=== PATIENT | female | born 1960 | race Caucasian/White ===

== ENCOUNTER 2019-03-14 16:24 | Inpatient (IN) | payer MEDICARE, OTHER ==
[2019-03-14 16:30] VITALS: BMI 33.9
--- NOTE | 2019-03-14 16:38 | PDOC ---
Rapid Medical Evaluation Chief Complaint: Shortness of Breath Time Seen by Provider: 03/14/19 16:34 Medical Evaluation: Allergies Allergy/AdvReac Type Severity Reaction Status Date / Time No Known Allergies Allergy Verified 03/14/19 16:27 Vital Signs Temp Pulse Resp BP Pulse Ox 98.5 F 101 H 16 146/92 96 03/14/19 16:27 03/14/19 16:27 03/14/19 16:27 03/14/19 16:27 03/14/19 16:27 03/14/19 16:35 Pt c/o: sob, dizzy , chest pain, weakness x 1 week, hx of anemia, worse as the day goes on, on no meds for anemia Pt on brief exam: tachy at 101, color pink, ekg nsr 83 Pt ordered for: labs,ekg, urine Pt to proceed to the ED 03/14/19 16:37 Discharge Disposition - Diagnosis Dizziness - Referrals - Patient Instructions - Post Discharge Activity
[2019-03-14 17:57] LABS: URINE APPEARANCE CLEAR; URINE BILIRUBIN NEGATIVE (NEGATIVE); URINE COLOR YELLOW; URINE GLUCOSE (UA) NEGATIVE (NEGATIVE); URINE KETONE NEGATIVE (NEGATIVE); URINE LEUK ESTERASE NEGATIVE (NEGATIVE); URINE NITRITE NEGATIVE (NEGATIVE); URINE PROTEIN NEGATIVE (NEGATIVE); URINE UROBILINOGEN 0.2 mg/dL (0.2-1.0)
[2019-03-14 18:00] LABS: BASO % 0.6 % (0-2.0); EOS % 0.7 % (0-4.5); HEMATOCRIT 39.5 % (32.4-45.2); HEMOGLOBIN 13.3 GM/dL (10.7-15.3); LYMPH % 24.4 % (8-40); MCH 29.3 pg (25.7-33.7); MCHC 33.7 g/dl (32.0-36.0); MEAN PLT VOLUME 9.2 fl (7.5-11.1); MONO % 6.6 % (3.8-10.2); NEUT % 67.7 % (42.8-82.8); PLATELET COUNT 282 K/MM3 (134-434); RBC 4.54 M/mm3 (3.60-5.2); RDW 12.8 % (11.6-15.6)
[2019-03-14 18:05] LABS: ALBUMIN 3.8 g/dl (3.4-5.0); BILIRUBIN,TOTAL 0.4 mg/dL (0.2-1); BLOOD UREA NITROGEN 14.6 mg/dL (7-18); CALCIUM 9.1 mg/dL (8.5-10.1); CREATININE 0.7 mg/dL (0.55-1.3); MAGNESIUM 2.2 mg/dL (1.8-2.4); POTASSIUM 4.3 mmol/L (3.5-5.1); TOT PROT 7.6 g/dl (6.4-8.2)
[2019-03-14] MEDS ORDERED: ASPIRIN 81 MG CHEWABLE TABLETS PO ONE (19:08)
--- NOTE | 2019-03-14 19:09 | PDOC ---
History of Present Illness - General Chief Complaint: Shortness of Breath Stated Complaint: WEAK/SHORTNESS OF BREATH Time Seen by Provider: 03/14/19 16:34 - History of Present Illness Initial Comments: The pt is a 59F w/ a history of HTN and DM who presents for evaluation of 1 week of increased weakness, decreased exercise tolerance, dyspnea on exertion, and chest pain with exertion. The pain is left-sided, non-radiating, achy/heavy , exertional, and alleviated by rest. She reports having similar symptoms approximately 1 year ago with a subsequent normal stress test and cath. She denies fevers/chills, vision changes, DELGADO, abdominal pain, N/V/C/D, dysuria, hematuria, or changes in sensation PMH: HTN, DM (both diet controlled) PSH: C/S x2 Meds: Denies SH: Social EtOH, Denies tobacco or illicit drug use PCP: N/A, recently moved here from [place] 03/14/19 19:24 Past History - Past Medical History Allergies/Adverse Reactions: Allergies Allergy/AdvReac Type Severity Reaction Status Date / Time No Known Allergies Allergy Verified 03/14/19 16:27 Home Medications: Ambulatory Orders NK [No Known Home Medication] 03/14/19 COPD: No - Immunization History Immunization Up to Date: Yes - Suicide/Smoking/Psychosocial Hx Smoking History: Never smoked Have you smoked in the past 12 months: No Information on smoking cessation initiated: No Hx Alcohol Use: No Drug/Substance Use Hx: No Substance Use Type: None Review of Systems - Review of Systems Able to Perform ROS?: Yes Comments:: GENERAL/CONSTITUTIONAL: No fever or chills HEAD, EYES, EARS, NOSE AND THROAT: No change in vision. No change in hearing. No sore throat CARDIOVASCULAR: +dyspnea on exertion, +exertional chest pain RESPIRATORY: Denies cough GASTROINTESTINAL: No nausea, vomiting, diarrhea or constipation GENITOURINARY: No dysuria, frequency, or change in urination MUSCULOSKELETAL: No joint or muscle swelling or pain. No neck or back pain SKIN: No rash NEUROLOGIC: No headache, vertigo, loss of consciousness, or change in strength/ sensation ENDOCRINE: No increased thirst. No abnormal weight change HEMATOLOGIC/LYMPHATIC: No anemia, easy bleeding, or history of blood clots ALLERGIC/IMMUNOLOGIC: No hives or skin allergy 03/14/19 19:07 Is the patient limited Fijian proficient: No *Physical Exam - Vital Signs Last Vital Signs Temp Pulse Resp BP Pulse Ox 98.5 F 101 H 16 146/92 96 03/14/19 16:27 03/14/19 16:27 03/14/19 16:27 03/14/19 16:27 03/14/19 18:36 - Physical Exam Comments: GENERAL: Awake, alert, and oriented to person/place/time, in no acute distress HEAD: No signs of trauma, normocephalic, atraumatic EYES: PERRLA, EOMI, sclera anicteric, conjunctiva clear ENT: Hearing grossly normal, nares patent, oropharynx clear without exudates. Moist mucosa LUNGS: No distress, speaks in full sentences, clear to auscultation bilaterally HEART: Regular rate and rhythm, normal S1 and S2, no murmurs appreciated, peripheral pulses normal and equal bilaterally ABDOMEN: Soft, protuberant, NTTP, normoactive bowel sounds. No guarding, no rebound EXTREMITIES: Normal inspection, Normal range of motion, no edema. No clubbing or cyanosis NEUROLOGICAL: Cranial nerves II through XII grossly intact. Normal speech, no focal sensorimotor deficits SKIN: Warm, Dry 03/14/19 19:08 ED Treatment Course - LABORATORY CBC & Chemistry Diagram: 03/14/19 17:17 03/14/19 17:17 - ADDITIONAL ORDERS Additional order review: Laboratory Results 03/14/19 03/14/19 17:17 17:17 Sodium 138 Potassium 4.3 Chloride 101 Carbon Dioxide 28 Anion Gap 9 BUN 14.6 Creatinine 0.7 Est GFR (CKD-EPI)AfAm 108.38 Est GFR (CKD-EPI)NonAf 93.51 Random Glucose 159 H Calcium 9.1 Magnesium 2.2 Total Bilirubin 0.4 AST 11 L ALT 23 Alkaline Phosphatase 102 Creatine Kinase 62 Troponin I 0.08 H Total Protein 7.6 Albumin 3.8 Urine Color Yellow Urine Appearance Clear Urine pH 6.0 Ur Specific [place] 1.017 Urine Protein Negative Urine Glucose (UA) Negative Urine Ketones Negative Urine Blood Negative Urine Nitrite Negative Urine Bilirubin Negative Urine Urobilinogen 0.2 Ur Leukocyte Esterase Negative 03/14/19 17:17 RBC 4.54 MCV 87.0 MCHC 33.7 RDW 12.8 MPV 9.2 Neutrophils % 67.7 Lymphocytes % 24.4 Monocytes % 6.6 Eosinophils % 0.7 Basophils % 0.6 Medical Decision Making - Medical Decision Making The pt is a 59F w/ a history of HTN and DM who presents for evaluation of 1 week of typical chest pain. Pt denies SOB/chest pain currently while laying in bed Ddx: ACS, consider PNA, less likely TAA, AD ED Course Labs sent from triage ECG CXR No leukocytosis No anemia Lytes wnl No NICOLE LFTs wnl Initial trop I mildly elevated to 0.08 -ASA ordered ECG w/ NSR; HR 86; QTc 458, No evidence of LEIGH Pt pending CXR Plan for tele obs for ACS 03/14/19 19:30 Pt signed out to [facility] Admitting 03/14/19 19:48 *DC/Admit/Observation/Transfer Diagnosis at time of Disposition: ACS (acute coronary syndrome), Dyspnea on exertion - Discharge Dispostion Condition at time of disposition: Good Decision to Admit order: Yes - Referrals - Patient Instructions - Post Discharge Activity
--- NOTE | 2019-03-14 19:58 | PDOC ---
Documentation entered by Carrie Martinez SCRIBE, acting as scribe for Suman Garcia MD. Suman Garcia MD: This documentation has been prepared by the Michelle ling Xhesika, SCRIBE, under my direction and personally reviewed by me in its entirety. I confirm that the documentation accurately reflects all work, treatment, procedures, and medical decision making performed by me. Attending Attestation - Resident Resident Name: Filiberto Puri - ED Attending Attestation I have performed the following: I have examined & evaluated the patient, The case was reviewed & discussed with the resident, I agree w/resident's findings & plan, Exceptions are as noted - HPI HPI: 03/14/19 19:26 The patient is a 59 year old female with a significant PMH of HTN and diabetes who presents to the emergency department with 1 week of intermittent SOB associated with generalized weakness, dizziness, and typical chest pain. Patient states she feels SOB and needs to rest when she walks more than 1 block. Patient notes she does not feel SOB currently. Patient notes she recently moved from [place] and does not have a PCP or Weapons Designer. The patient denies headache, fever, chills, cough, nausea, vomiting, diarrhea and constipation. Denies dysuria, frequency, urgency and hematuria. Allergies: NKDA - Physicial Exam PE: 03/14/19 20:01 Agree with exam as documented by resident - Medical Decision Making 03/14/19 20:01 Progressively worsening ET over 1 week with exertional typical chest pain minimally elevated troponin EKG non-ischemic CXR no acute pathology Admit to tele for ACS eval
--- NOTE | 2019-03-14 20:35 | HP ---
CHIEF COMPLAINT: sob, chest pain PCP: Alon Arvizu HISTORY OF PRESENT ILLNESS: 59 y/o F, pmh of htn, dm type 2, and anemia, presents to the ED c/o of sob and left sided, localized, intermittent, dull chest pain, rated 4/10, of 1 week duration that has not improved or worsened since onset. Pt says that the pain is localized to the superior border of her left chest, tender to touch, reproducible and not associated with exertion. Pt reports her sob is not associated to exertion but rather is spontaneous occurring. Pt also reports some dizziness and runny eyes with her symptoms. Pt recently moved to [place] from [place], where she had done a stress test and cardiac cath a year ago for similar symptoms, for which the results were negative,as per her mechanical systems designer Dr. Alon Arvizu. Pt reports her daughter lives with her and recently recovered from shingles. Currently, pt has improved and has no c/o. Denies f/c/n/v/d, sore throat, abdominal pain, numbness, tingling, diarrhea, melena, hematochezia. ER course was notable for: (1) EKG- no acute changes (2) Aspirin given in ED (3) CXR- no acute pathology Recent Travel: moved from [place] PAST MEDICAL HISTORY: htn, dm type 2, and anemia PAST SURGICAL HISTORY: cardiac cath and stress test done last year Social History: Smoking: denies Alcohol: denies Drugs: denies Family History: Father- brain cancer Allergies No Known Allergies Allergy (Verified 03/14/19 16:27)---- HOME MEDICATIONS: Home Medications Medication Instructions Recorded NK [No Known Home Medication] 03/14/19 REVIEW OF SYSTEMS CONSTITUTIONAL: Absent: fever, chills, diaphoresis, generalized weakness, malaise, loss of appetite, weight change HEENT: Absent: eye pain, visual changes CARDIOVASCULAR: Absent: chest pain, syncope, palpitations, lightheadedness RESPIRATORY: Admits: shortness of breath, cough, Absent: dyspnea with exertion, wheezing, hemoptysis GASTROINTESTINAL: Absent: abdominal pain, abdominal distension, nausea, vomiting, diarrhea, constipation, melena, hematochezia GENITOURINARY: Absent: dysuria, frequency, hematuria, flank pain, genital pain MUSCULOSKELETAL: Absent: myalgia, arthralgia, back pain, SKIN: Absent: rash, itching, pallor HEMATOLOGIC/IMMUNOLOGIC: Absent: lymphadenopathy, frequent infections ENDOCRINE: Absent: unexplained weight gain/weight loss, NEUROLOGIC: Absent: headache, dizziness, unsteady gait, seizure, mental status changes, bladder or bowel incontinence PSYCHIATRIC: Absent: anxiety, PHYSICAL EXAMINATION Vital Signs - 24 hr Last Vital Signs Temp Pulse Resp BP Pulse Ox 98.5 F 101 H 16 146/92 96 03/14/19 16:27 03/14/19 16:27 03/14/19 16:27 03/14/19 16:27 03/14/19 18:36 GENERAL: Awake, alert, and fully oriented, in no acute distress. EYES: Pupils equal, round and reactive to light, extraocular movements intact. Fundoscopic exam wnl EARS, NOSE, THROAT: oropharynx clear without exudates. Moist mucous membranes. NECK: Supple without lymphadenopathy, JVD, or masses. LUNGS: Breath sounds equal, clear to auscultation bilaterally. No wheezes, and no crackles. HEART: Regular rate and rhythm, normal S1 and S2 without murmur, rub or gallop. ABDOMEN: Soft, nontender, not distended, normoactive bowel sounds, no guarding, no rebound, no masses. No hepatomegaly or splenomegaly. MUSCULOSKELETAL: No CVA tenderness. UPPER EXTREMITIES: 2+ pulses, warm, well-perfused. No cyanosis. No peripheral edema. LOWER EXTREMITIES: 2+ pulses, warm, well-perfused. No peripheral edema. NEUROLOGICAL: Normal speech. PSYCHIATRIC: Cooperative. Good eye contact. Appropriate mood and affect. Laboratory Results - last 24 hr ASSESSMENT/PLAN: 59 y/o F, pmh of htn, dm type 2, and anemia, presents to the ED c/o of sob and left sided, localized chest pain of 1 week duration w/ EKG and CXR showing no abnormality and mildly elevated trop will need to r/o ACS #Chest pain + SOB likely 2/2 Chostochondritis vs intercostal muscle strain r/o ACS Pt on tele obs trend trops- 1st trop .08- elevated Lipid panel- f/u TSH ordered Tylenol for pain ECHO in the am Cardiology-Dr. Benz consulted F/u results for stress test and cardiac cath [facility] #Hypertensive urgency BP monitoring- now at 133/69 Lisinopril 10 PO daily Check BP and if needed adjust or switch medication #DM BGM ISS #DVT ppx Heparin sq FEN: Sodium/diabetic diet Dispo: f/u w/ ECHO in am, speak to cardiology, trend Trops Encouraged pt to establish care w/ PCP locally if possible ATTENDING PHYSICIAN STATEMENT I saw and evaluated the patient. I reviewed the resident's note and discussed the case with the resident. I agree with the resident's findings and plan as documented. SUBJECTIVE: OBJECTIVE: ASSESSMENT AND PLAN:
[2019-03-14] MEDS ORDERED: ASPIRIN COATED 81 MG TABLET.EC ONE (20:38)
--- NOTE | 2019-03-14 21:38 | PN ---
Teaching Attending Note ATTENDING PHYSICIAN STATEMENT I saw and evaluated the patient. I reviewed the resident's note and discussed the case with the resident. I agree with the resident's findings and plan as documented. Seen and examined; please refer to resident note for further historical information. Briefly, this is a 59 y/o female presenting to the ER with a CC of chest pain. Reported negative cath 1 year ago; outside facility and we will work to start obtaining records. Somewhat atypical and similar in nature to prior episodes. VS, labs, imaging reviewed NAD, AAO, resting in bed RRR s1/2 no mgr NC AT EOMI PERRLA NT ND +BS CN2-12 wnl, no fnd Normal mood, appropriate behavior EKG reviewed CXR reviewed Telemetry ordered ASSESSMENT AND PLAN: Patint presents with chest pain; reported negative cath ~yr ago with report pending. Afebrile and hemodynamcially stable with borderline troponin; valencia shave risk factors so will observe overngiht to r/o ACS # Chest Pain (ACS vs. HTN Emergency vs. other) # Obesity (BMI 33) # Uncontrolled HTN vs. Emergency # Troponemia Patient will be admitted to the telemetry; consider CV consultation in AM. Will work to control BP (was >180 in the ER). Etiology of CP is likely ACS vs. HTN emergency vs. MuSk/Other though with +troponin in light of no renal failure would be suspecting some strain. Giving 81mg PO ASA QD, checking labs to assess risk factors. Rechecking pressure STAT and will need to be DC on BP meds. Full code
[2019-03-14] MEDS: INSULIN SLIDING SCALE (NOVOLOG) 1 VIAL SQ SCH (21:45)
[2019-03-14] MEDS ORDERED: ACETAMINOPHEN 325 MG TABLET (FP) ONE (22:51)
[2019-03-14] MEDS: ACETAMINOPHEN 325 MG TABLET (FP) PO PRN (22:54)
[2019-03-15] MEDS ORDERED: LISINOPRIL 10 MG TABLET (FP) PO SCH ×3 (03:55→10:00)
[2019-03-15] MEDS ORDERED: HEPARIN NA (PORCINE) 5,000 UNITS/ML 1ML VIAL ONE (06:28)
[2019-03-15] MEDS: HEPARIN NA (PORCINE) 5,000 UNITS/ML 1ML VIAL SQ SCH ×2 (06:48→14:07)
[2019-03-15] MEDS: INSULIN SLIDING SCALE (NOVOLOG) 1 VIAL SQ SCH ×3 (06:48→17:22)
[2019-03-15 08:00] LABS: BASO % 0.8 % (0-2.0); EOS % 0.8 % (0-4.5); HEMATOCRIT 38.6 % (32.4-45.2); LYMPH % 28.9 % (8-40); MCH 29.4 pg (25.7-33.7); MCHC 33.8 g/dl (32.0-36.0); MEAN CELL VOLUME 86.8 fl (80-96); MEAN PLT VOLUME 8.8 fl (7.5-11.1); MONO % 7.5 % (3.8-10.2); PLATELET COUNT 263 K/MM3 (134-434); RBC 4.44 M/mm3 (3.60-5.2); RDW 12.9 % (11.6-15.6); WHITE BLOOD COUNT 7.6 K/mm3 (4.0-10.0)
[2019-03-15 08:26] LABS: CHOLESTEROL 265 mg/dL (50-200); HDL CHOLESTEROL 65 mg/dL (40-60); TRIGLYCERIDES 92 mg/dL (0-150)
[2019-03-15 08:42] LABS: ALBUMIN 3.6 g/dl (3.4-5.0); BILIRUBIN,TOTAL 0.6 mg/dL (0.2-1); BLOOD UREA NITROGEN 11.4 mg/dL (7-18); CALCIUM 9.2 mg/dL (8.5-10.1); CREATININE 0.6 mg/dL (0.55-1.3); TOT PROT 7.3 g/dl (6.4-8.2)
[2019-03-15] MEDS ORDERED: ASPIRIN 81 MG CHEWABLE TABLETS PO SCH (10:00)
[2019-03-15] MEDS ORDERED: LISINOPRIL 5 MG TABLET (FP) ONE (11:11)
--- NOTE | 2019-03-15 11:46 | EKG ---
Test Reason : Blood Pressure : / mmHG Vent. Rate : 083 BPM Atrial Rate : 083 BPM P-R Int : 120 ms QRS Dur : 082 ms QT Int : 390 ms P-R-T Axes : 014 029 003 degrees QTc Int : 458 ms NORMAL SINUS RHYTHM NORMAL ECG NO PREVIOUS ECGS AVAILABLE Confirmed by WALT WHITE MD ([id number]) on 03/15/2019 11:45:50 AM Referred By: Confirmed By:WALT WHITE MD
--- NOTE | 2019-03-15 12:46 | CON.CARD ---
Cardiology Consult (text) - Consultation Consultation Note: cc: cp, weakness, sob hpi: 59 f hx htn, dm, hld, here with cp, weakness, sob. Symptoms have been intermittent for over a year, worse past few weeks. No exertional sxs. Cp is sharp, upper left chest/shoulder, worse with palpation. Currently pt feeling well. No hx hrt dz. Pt reports normal cath for these sxs last year. pmh: per hpi psh: social: no tob fam: no premature cad,scd ros: per hpi; all others nl meds: Home Medications Medication Instructions Recorded NK [No Known Home Medication] 03/14/19 pe: Vital Signs Period Temp Pulse Resp BP Sys/Dewitt Pulse Ox Last 24 Hr 97.7 F-98.5 F 66-101 16-20 133-182/69-92 96-98 nad no jvd rrr s1s2 no mrg cta bl nl eff aao3 no le e/c/c abd nt nd pos bs no jaundice diaphoresis pos dp pt no carotid bruits +chest wall tenderness Laboratory Last Values WBC 7.6 K/mm3 (4.0-10.0) 03/15/19 07:37 RBC 4.44 M/mm3 (3.60-5.2) 03/15/19 07:37 Hgb 13.0 GM/dL (10.7-15.3) 03/15/19 07:37 Hct 38.6 % (32.4-45.2) 03/15/19 07:37 MCV 86.8 fl (80-96) 03/15/19 07:37 MCH 29.4 pg (25.7-33.7) 03/15/19 07:37 MCHC 33.8 g/dl (32.0-36.0) 03/15/19 07:37 RDW 12.9 % (11.6-15.6) 03/15/19 07:37 Plt Count 263 K/MM3 (134-434) 03/15/19 07:37 MPV 8.8 fl (7.5-11.1) 03/15/19 07:37 Absolute Neuts (auto) 4.7 K/mm3 (1.5-8.0) 03/15/19 07:37 Neutrophils % 62.0 % (42.8-82.8) 03/15/19 07:37 Lymphocytes % 28.9 % (8-40) 03/15/19 07:37 Monocytes % 7.5 % (3.8-10.2) 03/15/19 07:37 Eosinophils % 0.8 % (0-4.5) 03/15/19 07:37 Basophils % 0.8 % (0-2.0) 03/15/19 07:37 Nucleated RBC % 0 % (0-0) 03/15/19 07:37 Sodium 140 mmol/L (136-145) 03/15/19 07:37 Potassium 4.0 mmol/L (3.5-5.1) 03/15/19 07:37 Chloride 104 mmol/L (98-107) 03/15/19 07:37 Carbon Dioxide 29 mmol/L (21-32) 03/15/19 07:37 Anion Gap 7 MMOL/L (8-16) L 03/15/19 07:37 BUN 11.4 mg/dL (7-18) 03/15/19 07:37 Creatinine 0.6 mg/dL (0.55-1.3) 03/15/19 07:37 Est GFR (CKD-EPI)AfAm 114.02 03/15/19 07:37 Est GFR (CKD-EPI)NonAf 98.38 03/15/19 07:37 POC Glucometer 129 UNITS (80-120) 03/15/19 11:29 Random Glucose 140 mg/dL (74-106) H 03/15/19 07:37 Hemoglobin A1c % 7.2 % (4.2-6.3) H 03/15/19 07:37 Calcium 9.2 mg/dL (8.5-10.1) 03/15/19 07:37 Magnesium 2.2 mg/dL (1.8-2.4) 03/14/19 17:17 Total Bilirubin 0.6 mg/dL (0.2-1) 03/15/19 07:37 AST 18 U/L (15-37) 03/15/19 07:37 ALT 25 U/L (13-61) 03/15/19 07:37 Alkaline Phosphatase 89 U/L (45-117) 03/15/19 07:37 Creatine Kinase 62 U/L (26-192) 08/22/19 17:17 Troponin I 0.07 ng/ml (0.00-0.05) H 03/15/19 07:37 Total Protein 7.3 g/dl (6.4-8.2) 03/15/19 07:37 Albumin 3.6 g/dl (3.4-5.0) 03/15/19 07:37 Triglycerides 92 mg/dL (0-150) 03/15/19 07:37 Cholesterol 265 mg/dL (50-200) H 03/15/19 07:37 Total LDL Cholesterol 177 mg/dL (5-100) H 03/15/19 07:37 HDL Cholesterol 65 mg/dL (40-60) H 03/15/19 07:37 TSH 2.22 uIU/ml (0.358-3.74) 03/15/19 07:37 Urine Color Yellow 03/14/19 17:17 Urine Appearance Clear 03/14/19 17:17 Urine pH 6.0 (5.0-8.0) 03/14/19 17:17 Ur Specific [place] 1.017 (1.010-1.035) 03/14/19 17:17 Urine Protein Negative (NEGATIVE) 03/14/19 17:17 Urine Glucose (UA) Negative (NEGATIVE) 03/14/19 17:17 Urine Ketones Negative (NEGATIVE) 03/14/19 17:17 Urine Blood Negative (NEGATIVE) 03/14/19 17:17 Urine Nitrite Negative (NEGATIVE) 03/14/19 17:17 Urine Bilirubin Negative (NEGATIVE) 03/14/19 17:17 Urine Urobilinogen 0.2 mg/dL (0.2-1.0) 03/14/19 17:17 Ur Leukocyte Esterase Negative (NEGATIVE) 03/14/19 17:17 Blood Type O POSITIVE 03/15/19 07:37 Antibody Screen Negative 03/14/19 17:17 cxr: clear lungs ecg: sr nl intervals no ischemic changes a/p: 59 f hx htn, dm, hld, here with cp, weakness, sob. cp, weakness, sob: -no signs acs, chf, arrhythmia -chest pain seems MSK (reproducible on palpation) -trops borderline range with flat trend and nl ck, not c/w acs -check echo -pt reports nl cath for these same symptoms last year in [place]. if echo here benign then no further cardiac testing needed at this time htn: -cont sly-i hld: -cont statin
--- NOTE | 2019-03-15 14:01 | ECHO ---
Name: JAC ELDRIDGE Exam:Adult Echocardiogram Study Date: 03/15/2019 09:02 AM Age: 59 yrs Reason For Study: Chest pain Height: 65 in Weight: 204 lb BSA: 2.0 m2 MMode/2D Measurements & Calculations IVSd: 1.0 cm Ao root diam: 2.6 cm LVIDd: 5.1 cm LA dimension: 3.4 cm LVIDs: 3.6 cm LVPWd: 0.96 cm EDV(Teich): 122.2 ml LVOT diam: 2.1 cm ESV(Teich): 53.9 ml Doppler Measurements & Calculations MV E max jim: 68.6 cm/sec Ao V2 max: 121.6 cm/sec MV A max jim: 80.9 cm/sec Ao max P.9 mmHg MV E/A: 0.85 Ao V2 mean: 103.0 cm/sec MV dec time: 0.17 sec Ao mean P.4 mmHg Ao V2 VTI: 30.8 cm DESIRAE(I,D): 1.6 cm2 DESIRAE(V,D): 1.8 cm2 LV V1 max P.7 mmHg MR max jim: 312.2 cm/sec LV V1 mean P.0 mmHg MR max P.0 mmHg LV V1 max: 65.8 cm/sec LV V1 mean: 47.8 cm/sec LV V1 VTI: 14.1 cm SV(LVOT): 47.8 ml TR max jim: 225.2 cm/sec TR max P.7 mmHg PA V2 max: 74.7 cm/sec PI end-d jim: 82.8 cm/sec PA max P.2 mmHg Med Peak E' Jim: 4.7 cm/sec Med E/e': 14.7 Lat Peak E' Jim: 4.0 cm/sec Lat E/e': 17.1 Procedure A complete two-dimensional transthoracic echocardiogram was performed (2D, M-mode, Doppler and color flow Doppler). Left Ventricle The left ventricular size, thickness and function are normal. The left ventricular ejection fraction is normal. Ejection Fraction = 60-65%. The left ventricular wall motion is normal. Right Ventricle The right ventricle is normal in size and function. Atria Normal left and right atrial size and function. Mitral Valve There is no mitral regurgitation noted. Tricuspid Valve There is mild tricuspid regurgitation. Right ventricular systolic pressure is normal. Aortic Valve No hemodynamically significant valvular aortic stenosis. No aortic regurgitation is present. Pulmonic Valve Trace pulmonic valvular regurgitation. Great Vessels The aortic root is normal size. Pericardium/Pleura There is no pericardial effusion. Interpretation Summary The left ventricular size, thickness and function are normal The right ventricle is normal in size and function. There is mild tricuspid regurgitation. Trace pulmonic valvular regurgitation. MD Frank Reed 03/15/2019 02:00 PM
--- NOTE | 2019-03-15 14:41 | PN ---
Teaching Attending Note Name of Resident: Sp Corona ATTENDING PHYSICIAN STATEMENT I saw and evaluated the patient. I reviewed the resident's note and discussed the case with the resident. I agree with the resident's findings and plan as documented. SUBJECTIVE: No fever or chills. No DELGADO , L upper cp under clavicle. No DELGADO . reports blurry vision, but is supposed to wear glasses. she reports no SOB but has SOB with exertion ( 1 block and 1 flight of stairs ) OBJECTIVE: NAD Cv : RRR, no JVD, no MRG Lungs: CTAB Ext : no edema or erythema. Abd: soft, NT, ND , Neg hepatojugular reflux. TTP over L upper chest under the medial part of the clavicle ASSESSMENT AND PLAN: 59 y/o lady with h/o Untreated HTn and DM , who presented with L sided CP and SOB, and was found to have HTN emergency 1- HTN emergency: Bp improved - start lisionpril 10 mg daily - need BMP in 1 week for cr and K 2- DM : will start metformin at dc - SSI here 3- Elevated trop: likely due to HTN . -EKG reviewed. - will try to obtain cath and stress test reprots - cp is musculoskeletal and reproducible. - further w/u as out pt 4- HLP: LDL above goal. - start lipitor 5- Chronic exertional SOB: further cardiac w/u as out pt , and also might need PFTs. dispo : Will dc home later today will refer to resident clinic. she was made aware of importance ot follow up and to comply with meds, and also the need fro BMP in 1 week
[2019-03-15 14:55] VITALS: BP 109/60
[2019-03-15] MEDS: ACETAMINOPHEN 325 MG TABLET (FP) PO PRN (15:43)
[2019-03-15 16:44] VITALS: PULSE 72; TEMP 97.6
--- NOTE | 2019-03-15 17:20 | DS ---
Physical Exam: SUBJECTIVE: Patient seen and examined by the bedside, AOx3. OBJECTIVE: Vital Signs Period Temp Pulse Resp BP Sys/Dewitt Pulse Ox Last 24 Hr 97.6 F-98.2 F 66-82 18-20 109-182/60-88 95-98 PHYSICAL EXAM GENERAL: The patient is awake, alert, and fully oriented, in no acute distress. HEAD: Normal with no signs of trauma. EYES: PERRL, extraocular movements intact, sclera anicteric, conjunctiva clear. ENT: Ears normal, nares patent, oropharynx clear without exudates, moist mucous membranes. NECK: Trachea midline, full range of motion, supple. LUNGS: Breath sounds equal, clear to auscultation bilaterally, no wheezes, no crackles, no accessory muscle use. HEART: Regular rate and rhythm, S1, S2 without murmur, rub or gallop. Tenderness to palpation under right clavicle ABDOMEN: Soft, nontender, nondistended, normoactive bowel sounds, no guarding, no rebound, no hepatosplenomegaly, no masses. EXTREMITIES: 2+ pulses, warm, well-perfused, no edema. NEUROLOGICAL: Cranial nerves II through XII grossly intact. Normal speech, gait not observed. PSYCH: Normal mood, normal affect. SKIN: Warm, dry, normal turgor, no rashes or lesions noted. LABS Laboratory Results - last 24 hr 03/14/19 03/14/19 03/14/19 17:17 17:17 17:17 WBC 10.0 RBC 4.54 Hgb 13.3 Hct 39.5 MCV 87.0 MCH 29.3 MCHC 33.7 RDW 12.8 Plt Count 282 MPV 9.2 Absolute Neuts (auto) 6.8 Neutrophils % 67.7 Lymphocytes % 24.4 Monocytes % 6.6 Eosinophils % 0.7 Basophils % 0.6 Nucleated RBC % 0 Sodium 138 Potassium 4.3 Chloride 101 Carbon Dioxide 28 Anion Gap 9 BUN 14.6 Creatinine 0.7 Est GFR (CKD-EPI)AfAm 108.38 Est GFR (CKD-EPI)NonAf 93.51 POC Glucometer Random Glucose 159 H Hemoglobin A1c % Calcium 9.1 Magnesium 2.2 Total Bilirubin 0.4 AST 11 L ALT 23 Alkaline Phosphatase 102 Creatine Kinase 62 Troponin I 0.08 H Total Protein 7.6 Albumin 3.8 Triglycerides Cholesterol Total LDL Cholesterol HDL Cholesterol TSH Urine Color Urine Appearance Urine pH Ur Specific [place] Urine Protein Urine Glucose (UA) Urine Ketones Urine Blood Urine Nitrite Urine Bilirubin Urine Urobilinogen Ur Leukocyte Esterase Blood Type O POSITIVE Antibody Screen Negative 03/14/19 03/14/19 03/14/19 17:17 21:36 22:48 WBC RBC Hgb Hct MCV MCH MCHC RDW Plt Count MPV Absolute Neuts (auto) Neutrophils % Lymphocytes % Monocytes % Eosinophils % Basophils % Nucleated RBC % Sodium Potassium Chloride Carbon Dioxide Anion Gap BUN Creatinine Est GFR (CKD-EPI)AfAm Est GFR (CKD-EPI)NonAf POC Glucometer 136 Random Glucose Hemoglobin A1c % Calcium Magnesium Total Bilirubin AST ALT Alkaline Phosphatase Creatine Kinase Troponin I Cancelled Total Protein Albumin Triglycerides Cholesterol Total LDL Cholesterol HDL Cholesterol TSH Urine Color Yellow Urine Appearance Clear Urine pH 6.0 Ur Specific [place] 1.017 Urine Protein Negative Urine Glucose (UA) Negative Urine Ketones Negative Urine Blood Negative Urine Nitrite Negative Urine Bilirubin Negative Urine Urobilinogen 0.2 Ur Leukocyte Esterase Negative Blood Type Antibody Screen 03/15/19 03/15/19 03/15/19 02:40 06:35 07:37 WBC RBC Hgb Hct MCV MCH MCHC RDW Plt Count MPV Absolute Neuts (auto) Neutrophils % Lymphocytes % Monocytes % Eosinophils % Basophils % Nucleated RBC % Sodium Potassium Chloride Carbon Dioxide Anion Gap BUN Creatinine Est GFR (CKD-EPI)AfAm Est GFR (CKD-EPI)NonAf POC Glucometer 134 Random Glucose Hemoglobin A1c % Calcium Magnesium Total Bilirubin AST ALT Alkaline Phosphatase Creatine Kinase Troponin I 0.08 H Total Protein Albumin Triglycerides Cholesterol Total LDL Cholesterol HDL Cholesterol TSH Urine Color Urine Appearance Urine pH Ur Specific [place] Urine Protein Urine Glucose (UA) Urine Ketones Urine Blood Urine Nitrite Urine Bilirubin Urine Urobilinogen Ur Leukocyte Esterase Blood Type O POSITIVE Antibody Screen 03/15/19 03/15/19 03/15/19 07:37 07:37 07:37 WBC 7.6 RBC 4.44 Hgb 13.0 Hct 38.6 MCV 86.8 MCH 29.4 MCHC 33.8 RDW 12.9 Plt Count 263 MPV 8.8 Absolute Neuts (auto) 4.7 Neutrophils % 62.0 Lymphocytes % 28.9 Monocytes % 7.5 Eosinophils % 0.8 Basophils % 0.8 Nucleated RBC % 0 Sodium 140 Potassium 4.0 Chloride 104 Carbon Dioxide 29 Anion Gap 7 L BUN 11.4 Creatinine 0.6 Est GFR (CKD-EPI)AfAm 114.02 Est GFR (CKD-EPI)NonAf 98.38 POC Glucometer Random Glucose 140 H Hemoglobin A1c % Calcium 9.2 Magnesium Total Bilirubin 0.6 AST 18 ALT 25 Alkaline Phosphatase 89 Creatine Kinase Troponin I Total Protein 7.3 Albumin 3.6 Triglycerides 92 Cholesterol 265 H Total LDL Cholesterol 177 H HDL Cholesterol 65 H TSH 2.22 Urine Color Urine Appearance Urine pH Ur Specific [place] Urine Protein Urine Glucose (UA) Urine Ketones Urine Blood Urine Nitrite Urine Bilirubin Urine Urobilinogen Ur Leukocyte Esterase Blood Type Antibody Screen 03/15/19 03/15/19 03/15/19 07:37 07:37 11:29 WBC RBC Hgb Hct MCV MCH MCHC RDW Plt Count MPV Absolute Neuts (auto) Neutrophils % Lymphocytes % Monocytes % Eosinophils % Basophils % Nucleated RBC % Sodium Potassium Chloride Carbon Dioxide Anion Gap BUN Creatinine Est GFR (CKD-EPI)AfAm Est GFR (CKD-EPI)NonAf POC Glucometer 129 Random Glucose Hemoglobin A1c % 7.2 H Calcium Magnesium Total Bilirubin AST ALT Alkaline Phosphatase Creatine Kinase Troponin I 0.07 H Total Protein Albumin Triglycerides Cholesterol Total LDL Cholesterol HDL Cholesterol TSH Urine Color Urine Appearance Urine pH Ur Specific [place] Urine Protein Urine Glucose (UA) Urine Ketones Urine Blood Urine Nitrite Urine Bilirubin Urine Urobilinogen Ur Leukocyte Esterase Blood Type Antibody Screen HOSPITAL COURSE: Date of Admission:03/14/19 59 year old female with PMH significant for htn, dm type 2, and anemia (not o any home meds) presented to the ER with complaints of SOB and constant left sided, reproducible chest pain under the right clavicle, rated 3/10, of 1 week duration.. She moved to [place] from [place] one month ago, where she had done a stress test and cardiac cath a year ago for similar symptoms, for which the results were negative,as per her surveillance investigator Dr. Alon Arvizu. Attempts were made to retrieve these tests but have been unsuccessful so far. Pt reports her daughter lives with her and recently recovered from shingles. No associated sore throat, abdominal pain, numbness, tingling, diarrhea, melena, hematochezia. Date of Discharge: 03/15/19 Trops were done x3 and remained at 0.08 and 0.07. EKG was negative. There was tenderness beneath her right clavicle, and ACS was ruled out. Echo showed no abnormalities, and she cardio was consulted (Dr. Reed), who cleared her for D /C. Her BP was found to be 182/84 and she was started on Lisinopril 10mg. Random glucose was 159, HbA1c was 7.2, she was started on metformin after D/C. She was discharged on Lisinopril 10mg, Metformin 500mg BID, Aspirin 81mg, and Lipitor 40mg, and asked to follow up at the resident clinic. Minutes to complete discharge: 37 Discharge Summary Reason For Visit: DYSPNEA ON EXERTION,DIABETES MELLITUS, Current Active Problems Chest pain, musculoskeletal (Acute) Dyspnea on exertion (Chronic) Condition: Improved - Instructions Diet, Activity, Other Instructions: You were admitted to the hospital because you had chest pain and shortness of breath. We believe that the pain in your chest is not because of a heart condition. We performed a scan of your heard (Echo) which did not show any need for emergency treatment. Your XRay did not show any abnormalities. You were also seen by our surveillance investigator, who cleared you for discharge. You are now doing better, and do not need any further treatment at the hospital , so you are being discharged home. While you were here, you were found to have high blood pressure, high cholesterol and high blood sugar. We gave you some medicines, which you will need to continue taking every day. Please note that it is VERY IMPORTANT that you take these medicines. Elevated blood pressure may cause strokes, heart attacks, and untreated diabetes may cause infections resulting in amputations, kidney disease, nerve damage, infections, skin problems, blindness, and many other diseases. It is important that you take these medicines, and visit a primary care physician frequently. Medications: - Please start taking Aspirin 81mg by mouth once per day. - Please start taking Lisinopril 10mg by mouth once per day to lower your blood pressure. - Please start taking Lipitor 40mg by mouth once every evening to lower your cholesterol. - Please start taking Metformin 500mg by mouth twice per day to lower your blood sugar level. Follow up: - Please follow up with your primary care physician. If you do not have one, please make an appointment with Dr. Sp Corona at [facility] [place] [facility] - You need blood work to check your kidney function and electrolytes in 1 week Additional Information: Please return to the Emergency Department if you have any of the following: Fever, shortness of breath, loss of consciousness, nausea, dizziness, vomiting, diarrhea, bleeding that will not stop, or persistent headache. Referrals: Sp Corona RES [Resident] - Disposition: HOME - Home Medications Comprehensive Discharge Medication List: Ambulatory Orders Aspirin [ASA -] 81 mg PO DAILY #30 tab.chew 03/15/19 Atorvastatin Ca [Lipitor] 40 mg PO HS #30 tablet 03/15/19 Lisinopril [Prinivil] 10 mg PO DAILY #30 tablet 03/15/19 Metformin HCl [Glucophage] 500 mg PO BID 30 Days #60 tablet 03/15/19 This patient is new to me today: Yes Date on this admission: 03/15/19 Emergency Visit: Yes ED Registration Date: 03/14/19 Care time: The patient presented to the Emergency Department on the above date and was hospitalized for further evaluation of their emergent condition. Critical Care patient: No - Discharge Referral Referred to [facility] Med [facility] No ATTENDING PHYSICIAN STATEMENT I saw and evaluated the patient. I reviewed the resident's note and discussed the case with the resident. I agree with the resident's findings and plan as documented. SUBJECTIVE: OBJECTIVE: ASSESSMENT AND PLAN:
[2019-03-15] MEDS ORDERED: ATORVASTATIN CA 40 MG TABLET (FP) PO SCH (22:00)
== END 2019-03-15 17:46 | disposition home or self-care (01) | DRG 199 ==
LOC: JER 16:24 → JERBED 19:35 → J4W 03-15 15:18
PROVIDERS: ADMIT Internal Medicine; ATTEND Internal Medicine
DX: I16.1 Hypertensive emergency (principal); I10 Essential (primary) hypertension; D64.9 Anemia, unspecified; E11.9 Type 2 diabetes mellitus without complications; E66.9 Obesity, unspecified; E78.5 Hyperlipidemia, unspecified; Z68.33 Body mass index [BMI] 33.0-33.9, adult; R74.8 Abnormal levels of other serum enzymes; R07.89 Other chest pain
CPT/HCPCS: 36415; 71045-TC-FY; 80053; 80061; 81003; 82550; 82962; 83036; 83721; 83735; 84443; 84484; 85025; 86850; 86900; 86901; 87086; 93005; 93010; 93306-TC; 99285-25; J1644